=== PATIENT | female | born 1950 | race Hispanic/Latino ===

== ENCOUNTER → 2020-11-10 | Outpatient (CLI) | payer OTHER, MEDICARE ==
[~2020-11-10] MED LIST: ACET-2743 PO; HYDR12.54 PO; LORA-699 PO; METO-391 PO; REGADENOSON 0.4 MG/5 ML PF SYG IVP SCH; TIMO1DRO OP
== END | disposition home or self-care (01) ==
LOC: RAH 09:25
PROVIDERS: ATTEND Internal Medicine
DX: R07.9 Chest pain, unspecified (principal); R06.09 Other forms of dyspnea
CPT/HCPCS: 78452; 93017; 96374; A9500 ×2; J2785

== ENCOUNTER → 2024-10-19 | Outpatient (CLI) | payer OTHER, MEDICAID ==
[~2024-10-19] MED LIST changes: -REGADENOSON 0.4 MG/5 ML PF SYG IVP SCH
--- NOTE | 2024-10-19 17:43 | HMCIMG ---
US THYROID/NECK HISTORY: Thyrotoxicosis COMPARISON: None TECHNIQUE: Thyroid ultrasound study was performed. FINDINGS: Right thyroid lobe measures 4 x 1.7 x 1 cm. Left thyroid lobe measures 4.3 x 1 0.7, 1.1 cm. There are right thyroid nodules with the largest measuring 5 mm there is left lower pole thyroid nodule measuring 2 x 1.2 x 1.3 cm. Small cyst is seen in the isthmus measuring 5 mm. IMPRESSION: 1. Bilateral thyroid nodules with the largest in the lower pole of the left thyroid measuring 2 x 1.2 x 1.3 cm.
--- NOTE | 2024-10-19 23:43 | HMCSR ---
APPROVED REPORT EXAM: Two-dimensional and M-mode echocardiogram with Doppler and color Doppler. INDICATION ICD: R01.1 Carotid murmur 2D Dimensions RVDd4.2 cmLVEF(%)67.9 (>50%)LVED Vol(simp.)76.9 mL IVSd0.7 (0.7-1.1cm)FS(%)38 %LVES Vol(simp.)30.6 mL LVDd5.4 (3.8-5.6cm)LA (2D)4.8 (1.6-4.0cm)LVEF(%, simp.)65 % PWd1.2 (0.7-1.1cm)Ao Root(2D)3.1 (2.0-3.7cm)LA ESV INDEX (BP)44.08 mL/m2 IVSs1.4 cmLVOT diam2.0 (1.8-2.4cm) LVDs3.3 (2.5-4.0cm) PWs1.3 cm M-Mode Dimensions EPSS0.7 cm LA (MM)4.7 (1.6-4.0cm) Ao Root(MM)3.0 (2.0-3.7cm) Aortic Valve AoV Vmax2.9 m/Brent Peak GR33.3 mmHgLVOT Vmax1.0 m/s AoV VTI0.6 mAo Mean GR18.7 mmHgLVOT VTI0.24 m LORRAINE (VMAX)1.16 cm2AVA (VTI) 1.3 cm2 Mitral Valve MV E Vmax75.8 cm/sDECEL Dkos259 ms MV A Vmax67.6 cm/sP 1/2 T45 ms E/A ratio1.1MVA (PHT)4.8 cm2 TDI E/E' Ohmvdl78.5E/E' Lateral8.9 Medial E' Peak V5.62 cm/sLateral E' Peak V8.52 cm/s Pulmonary Valve PV Vmax1.1 m/sPV VTI0.22 mPV Mean GR2.6 mmHg PV Peak GR5.0 mmHgPI End Nadine. Lior 97.3 cm/s Tricuspid Valve TR Vmax1.9 m/sRAP (EST) 8 lvGpFVSZ69.3 mmHg TR Peak GR14.3 mmHg Left Ventricle The left ventricle is normal size. No regional wall motion abnormalities noted. Mild concentric left ventricular hypertrophy. Left ventricular systolic function is normal, estimated LVEF 55 to 60%. Grad e 1 diastolic dysfunction. Right Ventricle The right ventricle is normal size. The right ventricular systolic function is normal. Atria The left atrium is moderately dilated, 44 mL/m. The right atrium size is normal. Aortic Valve Aortic valve is trileaflet. The leaflets are moderately thickened and calcified. Trace aortic regurgi tation. Moderate aortic stenosis: Peak velocity 3.1 m/s, mean gradient 22 mmHg. Mitral Valve Mild mitral annular calcification is noted. The leaflets are mildly thickened and calcified. Mild sera ral regurgitation. There is no mitral valve stenosis. Tricuspid Valve The tricuspid valve is normal in structure. Trace tricuspid regurgitation. RVSP is 14 mmHg. Pulmonic Valve Pulmonic valve is not well visualized. Great Vessels The aortic root is normal in size. IVC is not well visualized. Pericardium There is no pericardial effusion. Other Information Quality : Adequate Conclusion The left atrium is moderately dilated, 44 mL/m. Mild concentric left ventricular hypertrophy. No regional wall motion abnormalities noted. Left ventricular systolic function is normal, estimated LVEF 55 to 60%. Grade 1 diastolic dysfunction. Moderate aortic stenosis: Peak velocity 3.1 m/s, mean gradient 22 mmHg. Trace aortic regurgitation. Mild mitral regurgitation. Trace tricuspid regurgitation. RVSP is 14 mmHg. There is no pericardial effusion.
== END | disposition home or self-care (01) ==
LOC: RAH 13:29
PROVIDERS: ATTEND Internal Medicine
DX: I08.0 Rheumatic disorders of both mitral and aortic valves (principal); E04.2 Nontoxic multinodular goiter; R01.1 Cardiac murmur, unspecified; E05.90 Thyrotoxicosis, unspecified without thyrotoxic crisis or storm
CPT/HCPCS: 76536; 93306